=== PATIENT | male | born 1995 | race Caucasian/White ===

== ENCOUNTER 2018-04-30 18:44 | Emergency (ER) | payer OTHER ==
[2018-04-30] MEDS: ONDANSETRON (ODT) 4 MG TAB ODT (19:12)
[2018-04-30] MEDS: HYDROCODONE/APAP (5/325) TAB PO (19:12)
[2018-04-30] MEDS: OPHTHALMIC IRRIG SOLUTION 120 ML LEFT EYE ×2 (19:49→20:29)
== END 2018-04-30 20:30 | disposition home or self-care (01) ==
LOC: FTE 18:44
DX: S05.92XA Unspecified injury of left eye and orbit, initial encounter (principal); X58.XXXA Exposure to other specified factors, initial encounter; Y92.9 Unspecified place or not applicable; Z87.891 Personal history of nicotine dependence
CPT/HCPCS: 99283